=== PATIENT | female | born 1985 | race Caucasian/White ===

== ENCOUNTER 2019-04-02 23:02 | Emergency (ER) | payer BC, OTHER ==
[~2019-04-02] VITALS: Ht 162.6 cm; Wt 55.4 kg
[2019-04-02 23:31] VITALS: Ht 162.6 cm; Wt 55.4 kg
[2019-04-03] MEDS ORDERED: NITR-58 PO (02:17)
[2019-04-03] MEDS ORDERED: IBUP-1561 PO (02:17)
[2019-04-03] MEDS ORDERED: ACET-141 PO (02:17)
--- NOTE | 2019-04-03 02:18 | ERD ---
ER Documentation Chief Complaint Chief Complaint headache since 1930, also c/o nausea/vomiting ROS All systems reviewed and are negative except as per history of present illness. Medications Home Meds Active Scripts Nitrofurantoin Monohyd Macrocr* (Macrobid*) 100 Mg Capsr, 100 MG PO BID for uti for 5 Days, #10 CAP Prov:NORBERT ÁLVAREZ DO 04/03/19 Ibuprofen* (Motrin*) 400 Mg Tab, 400 MG PO Q6H PRN for PAIN AND OR ELEVATED TEMP, #30 TAB Prov:NORBERT ÁLVAREZ DO 04/03/19 Acetaminophen* (Acetaminophen*) 500 MG Extra Strength Tablet, 500 MG PO Q4H PRN for PAIN AND OR ELEVATED TEMP, #30 TAB Prov:NORBERT ÁLVAREZ DO 04/03/19 Allergies Allergies: Coded Allergies: No Known Drug Allergies (Verified Allergy, Unknown, 04/02/19) PMhx/Soc Medical and Surgical Hx: pt denies Medical Hx Hx Psychiatric Problems: Yes (DEPRESSION, ADHD) Hx Alcohol Use: No Hx Substance Use: No Hx Tobacco Use: No Smoking Status: Never smoker Physical Exam Vitals Vital Signs Date Temp Pulse Resp B/P (MAP) Pulse Ox O2 O2 Flow FiO2 Time Delivery Rate 04/02/19 98.1 69 18 127/98 100 23:31 (108) Physical Exam Const: No acute distress Head: Atraumatic Eyes: Normal Conjunctiva ENT: Normal External Ears, Nose and Mouth. Neck: Full range of motion. No meningismus. Resp: Clear to auscultation bilaterally Cardio: Regular rate and rhythm, no murmurs Abd: Soft, non tender, non distended. Normal bowel sounds Skin: No petechiae or rashes Back: No midline or flank tenderness Ext: No cyanosis, or edema Neur: Awake and alert Psych: Normal Mood and Affect Results 24 hrs Laboratory Tests Test 04/03/19 00:35 04/03/19 00:39 Urine Color YELLOW Urine Clarity CLOUDY Urine pH 9.0 Urine Specific [place] 1.017 Urine Ketones NEGATIVE mg/dL Urine Nitrite NEGATIVE mg/dL Urine Bilirubin NEGATIVE mg/dL Urine Urobilinogen NEGATIVE mg/dL Urine Leukocyte Esterase NEGATIVE Neena/ul Urine Microscopic RBC 1 /HPF Urine Microscopic WBC 4 /HPF Urine Squamous Epithelial Cells FEW /HPF Urine Amorphous Crystals MANY /HPF Urine Bacteria FEW /HPF Urine Yeast (Budding) MANY /HPF Urine Hemoglobin NEGATIVE mg/dL Urine Glucose NEGATIVE mg/dL Urine Total Protein NEGATIVE mg/dl POC Beta HCG, Qualitative NEGATIVE Departure Diagnosis: Primary Impression: Headache Headache type: unspecified Headache chronicity pattern: unspecified pattern Intractability: not intractable Qualified Codes: R51 - Headache Additional Impression: Dysuria Condition: Fair Patient Instructions: Dysuria, Self-Care for Headaches Referrals: COMMUNITY CLINICS YOU HAVE RECEIVED A MEDICAL SCREENING EXAM AND THE RESULTS INDICATE THAT YOU DO NOT HAVE A CONDITION THAT REQUIRES URGENT TREATMENT IN THE EMERGENCY DEPARTMENT. FURTHER EVALUATION AND TREATMENT OF YOUR CONDITION CAN WAIT UNTIL YOU ARE SEEN IN YOUR DOCTORS OFFICE WITHIN THE NEXT 1-2 DAYS. IT IS YOUR RESPONSIBILITY TO MAKE AN APPOINTMENT FOR FOLOW-UP CARE. IF YOU HAVE A PRIMARY DOCTOR --you should call your primary doctor and schedule an appointment IF YOU DO NOT HAVE A PRIMARY DOCTOR YOU CAN CALL OUR PHYSICIAN REFERRAL HOTLINE AT IF YOU CAN NOT AFFORD TO SEE A PHYSICIAN YOU CAN CHOSE FROM THE FOLLOWING [facility] [address] [facility] [facility] [address] [facility] [facility] [address] [facility] [facility] [address] [facility] [facility] [address] [facility] [facility]. [address] Additional Instructions: Call your primary care doctor TOMORROW for an appointment during the next 1-2 days.See the doctor sooner or return here if your condition worsens before your appointment time. NORBERT ÁLVAREZ DO Apr 03, 2019 02:18
[2019-04-03 02:25] VITALS: BP 109/66; PULSE 58; RESP 18
== END 2019-04-03 02:25 | disposition home or self-care (01) ==
LOC: FTE 23:02
DX: R51 Headache (principal); R30.0 Dysuria
CPT/HCPCS: 81001; 81025; 99283